=== PATIENT | male | born 1970 | race Two or more races ===

== ENCOUNTER 2021-09-13 20:14 | Emergency (ER) | payer OTHER ==
[~2021-09-13] VITALS: Ht 167.6 cm; Wt 81.6 kg
[2021-09-14] MEDS ORDERED: VISTARIL50 MG PO (02:09)
== END 2021-09-14 03:00 | disposition home or self-care (01) ==
LOC: ER 20:14
DX: R25.2 Cramp and spasm (principal); F41.9 Anxiety disorder, unspecified